=== PATIENT | male | born 1980 | race Caucasian/White ===

== ENCOUNTER 2022-02-09 06:46 | Outpatient (CLI) | payer BC, SELFPAY ==
--- NOTE | 2022-02-09 06:55 | CT_ITS ---
STUDY: CT SOFT TISSUE NECK WITH CONTRAST REASON FOR EXAM: Male, 41 years old. ANTERIOR CERVICAL LYMPHADENOPATHY RADIATION DOSAGE (If Supplied By Facility): CTDIvol = ( 18.03 ) mGy, DLP = ( 585.60 ) mGycm TECHNIQUE: The patient was scanned in a multi-detector CT scanner. High resolution transaxial imaging was performed following intravenous administration of IV 75mL Isovue-[id number]. Sagittal and coronal images were reconstructed. Individualized dose optimization techniques were used for this CT. COMPARISON: None. FINDINGS: Normal bilateral parotid glands. Normal bilateral surgical lead spaces. Normal bilateral parapharyngeal spaces. Normal bilateral carotid spaces. Normal bilateral sublingual and submandibular glands and spaces. Normal visualized nasopharynx. Normal retropharyngeal space. Normal perivertebral space. Normal visualized bilateral faucial tonsils. The visualized tongue, tongue base and oropharynx are normal. There are minimally enlarged lymph nodes of the neck, with preservation of normal apple architecture, consistent with a reactive lymph hyperplasia. Small submental lymph nodes. There is no demonstrated solid or cystic mass lesion. There is no abnormal contrast enhancement. There is a 7 mm well-defined slightly hypodense nodule subcutaneous tissues overlying the left posterior occipital bone. This may represent a small sebaceous cyst. Normal epiglottis, bilateral vallecula and hypopharynx. The pre-epiglottic and paraglottic adipose spaces are normal. Normal visualized bilateral piriform sinuses, aryepiglottic folds, vocal cords, and arytenoid-cricoid articulations. Normal subglottic trachea. Normal bilateral lobes of the thyroid gland. Normal visualized pulmonary apices. Normal visualized paranasal sinuses. Normal visualized cervical spine. CT/Soft Tissue Neck WITH Contrast IMPRESSION: Normal enhanced CT examination of the soft tissues of the neck. Electronically Signed: Thony Jimenez MD at 13:11 EDT ,
== END 2022-02-09 23:59 | disposition home or self-care (01) ==
LOC: CT 06:53
PROVIDERS: Referring Provider Registered Nurse; Visit Provider Registered Nurse
DX: R59.0 Localized enlarged lymph nodes (principal)
CPT/HCPCS: 70491; Q9967